=== PATIENT | male | born 1960 | race Caucasian/White ===

== ENCOUNTER → 2023-05-13 | Outpatient (CLI) | payer MEDICAID, SELFPAY ==
--- NOTE | 2023-05-13 13:26 | NEURO ---
NCS and/or EMG Patient Report Ordering Doctor: Margot Rodrigues DATE OF SERVICE: 05/13/23 Arsen presents for electrodiagnostic testing of the lower limbs. He reports numbness and tingling in both feet. Electrodiagnostic findings: Peroneal motor nerve demonstrates normal distal latency, amplitude and conduction velocity bilaterally. Normal tibial motor response bilaterally. Normal tibial and peroneal F-waves. H-reflex is prolonged bilaterally. Sensory responses are within normal limits. Needle EMG testing showed no evidence of denervation in any muscles tested in the lower limbs. There was no denervation in the lumbar paraspinals. Motor unit action potentials of normal amplitude and duration without polyphasic activity. Electrodiagnostic assessment: This is an essentially normal study in the lower limbs. There is prolongation of the H reflex bilaterally which is non-specific. There is no definitive evidence for peripheral polyneuropathy or lumbosacral radiculopathy. Multi Select Codes Neurology Neurology Interp Codes: 76120-84 Musc test done w/n test comp (interp) (2) and 34333-65 Nr cndj test 11-12 studies (interp)
== END | disposition home or self-care (01) ==
LOC: PSN 11:43
PROVIDERS: PCP Physician Assistant; Referring Provider Physician Assistant; Visit Provider Physician Assistant
DX: R20.0 Anesthesia of skin (principal)
CPT/HCPCS: 95886; 95912